=== PATIENT | female | born 1955 | race Caucasian/White ===

== ENCOUNTER → 2019-11-24 | Outpatient (REF) | payer BC, MEDICAID | LOC: M LAB REF 09:19 | PROVIDERS: ATTEND Dermatology | DX: C44.612 Basal cell carcinoma of skin of right upper limb, including shoulder (principal); C44.622 Squamous cell carcinoma of skin of right upper limb, including shoulder; L82.0 Inflamed seborrheic keratosis ==

== ENCOUNTER → 2020-01-01 | Outpatient (REF) | payer MEDICAID, OTHER | LOC: M LAB REF 17:59 | PROVIDERS: ATTEND Dermatology | DX: C44.601 Unspecified malignant neoplasm of skin of unspecified upper limb, including shoulder (principal); L57.0 Actinic keratosis; C44.320 Squamous cell carcinoma of skin of unspecified parts of face ==

== ENCOUNTER → 2020-03-10 | Outpatient (REF) | payer OTHER | LOC: M LAB REF 16:56 | PROVIDERS: ATTEND Dermatology | DX: D48.5 Neoplasm of uncertain behavior of skin (principal) ==

== ENCOUNTER → 2021-03-08 | Outpatient (REF) | payer MEDICARE, OTHER | LOC: M LAB REF 19:18 | PROVIDERS: ATTEND Physician Assistant | DX: C44.729 Squamous cell carcinoma of skin of left lower limb, including hip (principal) ==